=== PATIENT | male | born 1990 | race Caucasian/White ===

== ENCOUNTER 2020-05-14 13:25 | Outpatient (CLI) | payer OTHER | END 2020-05-14 13:28 | disposition home or self-care (01) | LOC: RAD 13:25 | PROVIDERS: ATTEND Family Medicine | DX: R07.89 Other chest pain (principal) ==

== ENCOUNTER 2020-12-08 14:12 | Outpatient (CLI) | payer OTHER | END 2020-12-08 14:17 | disposition home or self-care (01) | LOC: LAB 14:12 | PROVIDERS: ATTEND Family Medicine | DX: G57.61 Lesion of plantar nerve, right lower limb (principal); M79.672 Pain in left foot ==